=== PATIENT | female | born 2000 | race Caucasian/White ===

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

== ENCOUNTER 2024-10-14 06:25 | Emergency (ER) | payer OTHER ==
[2024-10-14 06:52] VITALS: BP 126/89; PULSE 85
== END 2024-10-14 06:59 ==
LOC: DL.ED 06:25
DX: Z02.89 Encounter for other administrative examinations (principal); Z86.59 Personal history of other mental and behavioral disorders; F17.290 Nicotine dependence, other tobacco product, uncomplicated
CPT/HCPCS: 99283; 99284